=== PATIENT | female | born 1955 | race Caucasian/White ===

== ENCOUNTER 2018-03-09 03:44 | Inpatient (IN) ==
[2018-03-09] MEDS ORDERED: SODIUM CHLORIDE 0.9% 2,000 ML IV STA (04:39)
[2018-03-09] MEDS ORDERED: INSULIN REGULAR 100 UNIT/ML IV STA ×2 (04:41→05:32)
[2018-03-09 04:51] LABS: Basophils % 0.5 % (0.0-0.8); Eosinophils # 0.1 10*3/uL (0.0-0.87); Eosinophils % 0.9 % (0.00-10.9); Hematocrit 42.5 VOL% (35.7-47.0); Hemoglobin 14.3 GM/DL (12.0-16.0); Immature Granulocytes % 1.1 %; Immature Granulocytes Absolute 0.08 #; Lymphocytes # 1.6 10*3/uL (1.4-4.0); Lymphocytes % 20.9 % (21.3-54.2); Mean Corpuscular HGB Conc 33.6 GM/DL (32-36); Mean Corpuscular Hemoglobin 30 PG (27-34); Mean Corpuscular Volume 89.5 FL (87-102); Mean Platelet Volume 9.8 FL (9.6-12.0); Monocytes # 0.7 10*3/uL (0.11-0.8); Monocytes % 9.6 % (1.7-12.7); Neutrophils # 5.1 10*3/uL (1.4-7.4); Platelet Count 302 T/CUMM (130-400); Red Blood Count 4.75 MC/CUMM (3.8-5.5); White Blood Count 7.6 T/CUMM (4-12)
[2018-03-09 05:08] LABS: Alanine Aminotransferase 27 U/L (13-56); Albumin 4.2 G/DL (3.4-5.0); Alkaline Phosphatase 124 U/L (45-117); Aspartate Amino Transferase 13 U/L (0-37); Blood Urea Nitrogen 16 MG/DL (7-18); Calcium 9.5 MG/DL (8.5-10.1); Osmolality,Calculated 282.1 MOS/KG (273-304); Potassium 3.9 MMOL/L (3.5-5.1); Sodium 128 MMOL/L (136-145); Total Protein 7.9 G/DL (6.4-8.3)
[2018-03-09 05:12] LABS: Glucose 557 MG/DL (74-106)
[2018-03-09 05:28] LABS: VBG Base Excess -0.4 MEQ/L (0-4); VBG Oxygen Saturation 91.9 %; VBG PCO2 42.7 MMHG (41-51); VBG PH 7.375; VBG PO2 64.2 MMHG (17-40)
[2018-03-09] MEDS ORDERED: DEXTROSE 50% 25 GM/50 ML VIAL IV PRN ×2 (06:07)
[2018-03-09] MEDS ORDERED: GLUCAGON 1 MG VIAL IM PRN ×2 (06:07)
[2018-03-09] MEDS ORDERED: ONDANSETRON 4 MG/2 ML VIAL IV PRN (06:07)
[2018-03-09] MEDS ORDERED: oxyCODONE/ACETAMINOPHEN 5-325 MG TABLET PO PRN (06:10)
[2018-03-09 06:17] LABS: Apearance,Urine CLEAR (Clear); Bilirubin,Urine Negative (Negative); Blood, Urine Negative (Negative); Glucose,Urine (UA) >=500 mg/dL (Negative); Ketones,Urine 20 mg/dL (Negative); Nitrite,Urine Negative (Negative); Protein,Urine Negative; RBC,Urine <1 /HPF (0-4); Urine Color Straw (Yellow); Urine Specific Gravity 1.032 (1.001-1.035); Urine Urobilinogen < 2.0 EU/DL (0.2-1.0); WBC,Urine <1 /HPF (0-6)
[2018-03-09] MEDS: LORazepam 0.5 MG TABLET PO SCH ×3 (09:15→21:15)
[2018-03-09] MEDS: FLUoxetine 20 MG CAPSULE PO SCH ×2 (09:16→21:15)
[2018-03-09] MEDS: ENOXAPARIN 40 MG/0.4 ML SYRINGE SUBCUT SCH (09:16)
[2018-03-09] MEDS: amLODIPine 2.5 MG TABLET PO SCH (09:16)
[2018-03-09] MEDS: NAPROXEN 500 MG TABLET PO SCH ×2 (09:16→21:15)
[2018-03-09] MEDS: PANTOPRAZOLE 40 MG TABLET PO SCH (09:32)
[2018-03-09] MEDS: BACLOFEN 10 MG TABLET PO SCH ×2 (09:32→21:15)
[2018-03-09] MEDS: SODIUM CHLORIDE 0.9% 1,000 ML IV SCH ×2 (09:34→21:15)
[2018-03-09] MEDS: INSULIN REGULAR 100 UNIT/ML SUBCUT SCH ×4 (09:34→21:16)
[2018-03-09] MEDS ORDERED: ACETAMINOPHEN 500 MG TABLET PO PRN (10:26)
[2018-03-09] MEDS: ASPIRIN EC 325 MG TABLET PO SCH (15:06)
[2018-03-09] MEDS: lamoTRIgine 100 MG TABLET PO SCH ×2 (15:09→21:17)
[2018-03-09] MEDS: LISINOPRIL 10 MG TABLET PO SCH (15:10)
[2018-03-09] MEDS ORDERED: INSULIN NPH/REGULAR 70/30 100 UNIT/ML SUBCUT SCH (16:30)
[2018-03-09] MEDS: ATORVASTATIN 40 MG TABLET PO SCH (21:15)
[2018-03-09] MEDS: GABAPENTIN 300 MG CAPSULE PO SCH (21:15)
[2018-03-10 05:16] LABS: Basophils # 0.1 10*3/uL (0.0-0.2); Basophils % 0.8 % (0.0-0.8); Eosinophils # 0.2 10*3/uL (0.0-0.87); Hematocrit 36.9 VOL% (35.7-47.0); Hemoglobin 11.9 GM/DL (12.0-16.0); Immature Granulocytes % 0.5 %; Immature Granulocytes Absolute 0.03 #; Lymphocytes # 2.4 10*3/uL (1.4-4.0); Lymphocytes % 40.1 % (21.3-54.2); Mean Corpuscular HGB Conc 32.2 GM/DL (32-36); Mean Corpuscular Hemoglobin 30 PG (27-34); Mean Corpuscular Volume 94.1 FL (87-102); Mean Platelet Volume 9.5 FL (9.6-12.0); Monocytes # 0.5 10*3/uL (0.11-0.8); Monocytes % 8.1 % (1.7-12.7); Neutrophils # 2.8 10*3/uL (1.4-7.4); Neutrophils % 47.5 % (38.7-73.9); Platelet Count 247 T/CUMM (130-400); Red Blood Count 3.92 MC/CUMM (3.8-5.5); Red Cell Distribution Width 12.1 % (9.3-17.3); White Blood Count 5.9 T/CUMM (4-12)
[2018-03-10 05:18] LABS: Basophils # 0.1 10*3/uL (0.0-0.2); Basophils % 0.8 % (0.0-0.8); Eosinophils # 0.2 10*3/uL (0.0-0.87); Eosinophils % 3.4 % (0.00-10.9); Hematocrit 35.8 VOL% (35.7-47.0); Hemoglobin 11.7 GM/DL (12.0-16.0); Immature Granulocytes % 0.7 %; Immature Granulocytes Absolute 0.04 #; Lymphocytes # 2.4 10*3/uL (1.4-4.0); Lymphocytes % 39.5 % (21.3-54.2); Mean Corpuscular HGB Conc 32.7 GM/DL (32-36); Mean Corpuscular Hemoglobin 31 PG (27-34); Mean Corpuscular Volume 93.5 FL (87-102); Mean Platelet Volume 9.6 FL (9.6-12.0); Monocytes # 0.6 10*3/uL (0.11-0.8); Monocytes % 9.8 % (1.7-12.7); Neutrophils # 2.8 10*3/uL (1.4-7.4); Neutrophils % 45.8 % (38.7-73.9); Platelet Count 240 T/CUMM (130-400); Red Blood Count 3.83 MC/CUMM (3.8-5.5); Red Cell Distribution Width 12.2 % (9.3-17.3); White Blood Count 6.1 T/CUMM (4-12)
[2018-03-10] MEDS: SODIUM CHLORIDE 0.9% 1,000 ML IV SCH ×3 (05:30→22:45)
[2018-03-10 05:36] LABS: Albumin 2.9 G/DL (3.4-5.0); Bilirubin,Total 0.4 MG/DL (0.2-1.0); Calcium 7.8 MG/DL (8.5-10.1); Osmolality,Calculated 283.1 MOS/KG (273-304); Potassium 3.2 MMOL/L (3.5-5.1); Total Protein 5.6 G/DL (6.4-8.3)
[2018-03-10 05:38] LABS: % Iron Saturation 19.1 % (18-50); Calcium 7.9 MG/DL (8.5-10.1); Ferritin 195.6 ng/ml (8-252); Osmolality,Calculated 287.8 MOS/KG (273-304); Potassium 3.8 MMOL/L (3.5-5.1)
[2018-03-10 05:41] LABS: Risk Ratio 5.47; VLDL CHOLESTEROL 49.4 MG/DL
[2018-03-10 05:45] LABS: Folate 7.5 NG/ML (5.4-24.0); Vitamin B12 827 PG/ML (211-911)
[2018-03-10] MEDS: ENOXAPARIN 40 MG/0.4 ML SYRINGE SUBCUT SCH (06:45)
[2018-03-10 08:08] LABS: Sedimentation Rate-Westergren 28 MM/HR (0-30)
[2018-03-10] MEDS: NAPROXEN 500 MG TABLET PO SCH ×2 (08:52→21:25)
[2018-03-10] MEDS: LORazepam 0.5 MG TABLET PO SCH ×2 (08:53→21:25)
[2018-03-10] MEDS: amLODIPine 2.5 MG TABLET PO SCH (08:53)
[2018-03-10] MEDS: BACLOFEN 10 MG TABLET PO SCH ×2 (08:53→21:25)
[2018-03-10] MEDS: PANTOPRAZOLE 40 MG TABLET PO SCH (08:53)
[2018-03-10] MEDS: LISINOPRIL 10 MG TABLET PO SCH (08:53)
[2018-03-10] MEDS: ASPIRIN EC 325 MG TABLET PO SCH (08:53)
[2018-03-10] MEDS: FLUoxetine 20 MG CAPSULE PO SCH ×2 (08:53→21:25)
[2018-03-10] MEDS: lamoTRIgine 100 MG TABLET PO SCH ×2 (08:54→21:33)
[2018-03-10] MEDS ORDERED: CYANOCOBALAMIN 1000 MCG/1 ML VIAL IM SCH (09:00)
[2018-03-10] MEDS: INSULIN REGULAR 100 UNIT/ML SUBCUT SCH ×4 (10:09→21:26)
[2018-03-10] MEDS ORDERED: ePHEDrine 50 MG/ML AMP IV PRN (12:49)
[2018-03-10] MEDS ORDERED: INSULIN GLARGINE 100 UNIT/ML SUBCUT SCH (21:00)
[2018-03-10] MEDS: GABAPENTIN 300 MG CAPSULE PO SCH (21:25)
[2018-03-10] MEDS: ATORVASTATIN 40 MG TABLET PO SCH (21:26)
[2018-03-11] MEDS: ENOXAPARIN 40 MG/0.4 ML SYRINGE SUBCUT SCH ×2 (07:25→09:32)
[2018-03-11 07:42] LABS: Calcium 8.2 MG/DL (8.5-10.1); Osmolality,Calculated 289.1 MOS/KG (273-304); Potassium 4.5 MMOL/L (3.5-5.1)
[2018-03-11] MEDS: SODIUM CHLORIDE 0.9% 1,000 ML IV SCH (08:10)
[2018-03-11] MEDS ORDERED: INSULIN GLARGINE 100 UNIT/ML SUBCUT SCH (08:44)
[2018-03-11] MEDS: FLUoxetine 20 MG CAPSULE PO SCH (09:13)
[2018-03-11] MEDS: BACLOFEN 10 MG TABLET PO SCH (09:13)
[2018-03-11] MEDS: LISINOPRIL 10 MG TABLET PO SCH (09:13)
[2018-03-11] MEDS: LORazepam 0.5 MG TABLET PO SCH (09:13)
[2018-03-11] MEDS: ASPIRIN EC 325 MG TABLET PO SCH (09:13)
[2018-03-11] MEDS: NAPROXEN 500 MG TABLET PO SCH (09:14)
[2018-03-11] MEDS: PANTOPRAZOLE 40 MG TABLET PO SCH (09:14)
[2018-03-11] MEDS: INSULIN REGULAR 100 UNIT/ML SUBCUT SCH (09:15)
[2018-03-11] MEDS: lamoTRIgine 100 MG TABLET PO SCH (09:20)
[2018-03-11 09:59] LABS: Hemoglobin A1 (Alkaline) 97.5 % (96.5-98.5); Hemoglobin A2 (Alkaline) 2.5 % (1.5-3.5)
[2018-03-11 10:16] VITALS: BP 116/62
== END 2018-03-11 13:43 | disposition home or self-care (01) | DRG 64 ==
LOC: SUATTDRO → N.EDINP 03:44 → N.ED 03:44 → SUATTDRO 06:31 → N.EDINP 07:55 → N.5E 08:14
PROVIDERS: ADMIT Internal Medicine; ATTEND Hospitalist